=== PATIENT | female | born 1995 | race Caucasian/White ===

== ENCOUNTER 2017-04-16 20:24 | Emergency (ER) | payer OTHER ==
[2017-04-16 20:47] VITALS: BP 117/71
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
== END 2017-04-16 21:15 | disposition home or self-care (01) ==
LOC: JP.ED 20:24
DX: S09.90XA Unspecified injury of head, initial encounter (principal); G44.319 Acute post-traumatic headache, not intractable; F17.210 Nicotine dependence, cigarettes, uncomplicated; Z88.0 Allergy status to penicillin; W19.XXXA Unspecified fall, initial encounter
CPT/HCPCS: 99284